=== PATIENT | female | born 1995 | race Caucasian/White ===

== ENCOUNTER → 2024-08-30 09:50 | Outpatient (REF) | payer BC, SELFPAY | LOC: HWRAD 09:50 | PROVIDERS: ATTENDING PHYSICIAN Advanced Practice Midwife; FAMILY PHYSICIAN Family Medicine | DX: Z30.431 Encounter for routine checking of intrauterine contraceptive device (principal) | CPT/HCPCS: 76830; 76856 ==

== ENCOUNTER → 2025-02-27 12:45 | Outpatient (REF) | payer BC, SELFPAY | LOC: MRI 3T 12:45 | PROVIDERS: ATTENDING PHYSICIAN Family Medicine | DX: R51.9 Headache, unspecified (principal); Z00.01 Encounter for general adult medical examination with abnormal findings | CPT/HCPCS: 70551 ==